=== PATIENT | female | born 1980 | race African-American/Black ===

== ENCOUNTER 2019-06-20 23:19 | Emergency (ER) | payer BC ==
[2019-06-20] MEDS ORDERED: predniSONE 20 MG TAB ONE (23:35)
== END 2019-06-20 23:39 | disposition home or self-care (01) ==
LOC: ERS 23:19
DX: L50.0 Allergic urticaria (principal); F17.210 Nicotine dependence, cigarettes, uncomplicated
CPT/HCPCS: 99283; J7512